=== PATIENT | female | born 1960 | race Caucasian/White ===

== ENCOUNTER 2019-01-04 23:23 | Emergency (ER) | payer BC ==
--- NOTE | 2019-01-04 23:51 | EDM.PDOC ---
ED HPI GENERAL MEDICAL PROBLEM - General Chief Complaint: Lower Extremity Injury/Pain Stated Complaint: LEFT KNEE SWOLLEN Time Seen by Provider: 01/04/19 23:33 - History of Present Illness INITIAL COMMENTS - FREE TEXT/NARRATIVE: HISTORY AND PHYSICAL: History of present illness: The patient is a 58-year-old female who underwent left knee surgery (total knee ) with at [facility] yesterday and was just discharged today and got home at 4 PM, approximately 8 hours ago and presents with concerns about swelling and discomfort at her knee. She says that she has been using her pain medication with the last dose being about 2 hours ago and she has had an ice machine icing the knee on pretty consistently until the evening when she removed it and then she noticed that the knee became very swollen and red. She is concerned that there is something going on as it feels very tight and swollen. She has not fallen but she did get up and ambulate per his instructions. She has no distal swelling or pain no proximal swelling or pain and no other systemic issues such as fever. Review of systems: As per history of present illness and below otherwise all systems reviewed and negative. Past medical history: As per history of present illness and as reviewed below otherwise noncontributory. Surgical history: As per history of present illness and as reviewed below otherwise noncontributory. Social history: No reported history of drug or alcohol abuse. Family history: As per history of present illness and as reviewed below otherwise noncontributory. Physical exam: General: Well-developed well-nourished female who is nontoxic and vital signs are noted by me HEENT: Atraumatic, normocephalic, negative for conjunctival pallor or scleral icterus, mucous membranes moist, throat clear, neck supple, nontender, trachea midline. Lungs: Clear to auscultation, breath sounds equal bilaterally, chest nontender. Heart: S1S2, regular in rhythm no overt murmurs Abdomen: Soft, nondistended, nontender. Negative for masses or hepatosplenomegaly. Negative for costovertebral tenderness. Pelvis: Stable nontender. Genitourinary: Deferred. Rectal: Deferred. Extremities: Atraumatic, negative for cords or calf pain. At the right knee there is a longitudinal incision seen which is clean and dry without any discrete erythema or drainage. There is diffuse soft tissue swelling of the knee with some erythema diffusely and some ecchymosis medially. There is no streaking and the area is not particularly tense but it is tender to palpation. There is no extension of this edema or erythema distally or proximally. There is no discrete joint effusion and there is no crepitus. Neurovascular unremarkable. Neuro: Awake, alert, oriented. Cranial nerves II through XII unremarkable. Cerebellum unremarkable. Motor and sensory unremarkable throughout. Exam nonfocal. Diagnostics: Therapeutics: The patient signed a release form for me to take pictures of her knee and send them to the orthopedics doctor on-call at [facility]. The case was discussed with Dr. Vidal, rehabilitation specialist for Dr Mane, at 0011. He does not feel that an x-ray is indicated and he thinks that the patient should make an appointment for follow-up with her surgeon in the morning if her concerns persist. He did not want me to send pictures that I had taken as he did not feel that this would change his plan or assist him. Impression: Postop evaluation, swelling, pain status post left total knee Definitive disposition and diagnosis as appropriate pending reevaluation and review of above. left knee Pain Score (Numeric/FACES): 9 - Related Data Allergies Allergy/AdvReac Type Severity Reaction Status Date / Time acetaminophen Allergy Rash Verified 01/04/19 23:42 [From Tylenol-Codeine #3] codeine phosphate Allergy Rash Verified 01/04/19 23:42 [From Tylenol-Codeine #3] Home Meds: Home Meds Albuterol [Ventolin HFA] 1 puff INH ASDIRECTED 12/21/13 [History] Ascorbic Acid [Vitamin C] 500 mg PO DAILY 01/04/19 [History] Aspirin [Aspirin EC] 325 mg PO DAILY 01/04/19 [History] Calcium Carb/Magnesium Hydrox [Rolaids Chewable Tablet] 1 tab PO ASDIRECTED 07/18 [History] Cholecalciferol (Vitamin D3) [Vitamin D3] 2,000 units PO DAILY 01/04/19 [History ] Docusate Sodium 200 mg PO BID 01/04/19 [History] Hydrocodone/Acetaminophen [[place] 10-325 Tablet] 1 tab PO Q4HR PRN 01/04/19 [ History] Meloxicam 7.5 mg PO DAILY 01/04/19 [History] Methocarbamol 750 mg PO TID PRN 01/04/19 [History] Polyethylene Glycol 3350 17 gm PO BID 01/04/19 [History] Telmisartan 40 mg PO DAILY 01/04/19 [History] Ubidecarenone [Coq-10] 100 mg PO DAILY 01/04/19 [History] amLODIPine [Norvasc] 5 mg PO DAILY 01/04/19 [History] Past Medical History Cardiovascular History: Reports: Hypertension Musculoskeletal History: Reports: Back Pain, Chronic - Past Surgical History Musculoskeletal Surgical History: Reports: Knee Replacement Social & Family History - Family History Family Medical History: Noncontributory - Tobacco Use Smoking Status *Q: Current Every Day Smoker Years of Tobacco use: 20 Packs/Tins Daily: 1 - Recreational Drug Use Recreational Drug Use: No Review of Systems - Review of Systems Review Of Systems: ROS reveals no pertinent complaints other than HPI. ED EXAM, GENERAL - Physical Exam Exam: See Below (See dictation) Course - Vital Signs Last Recorded V/S: Last Vital Signs Temp 35.7 C 01/04/19 23:30 Pulse 105 H 01/04/19 23:30 Resp 18 01/04/19 23:30 BP 112/83 01/04/19 23:30 Pulse Ox 95 01/04/19 23:30 Departure - Departure Time of Disposition: 00:26 Disposition: Home, Self-Care 01 Condition: Good Clinical Impression: Postoperative pain of left knee - Discharge Information Referrals: Hi Hurtado MD [Primary Care Provider] - Forms: ED Department Discharge Additional Instructions: The following information is given to patients seen in the emergency department who are being discharged to home. This information is to outline your options for follow-up care. We provide all patients seen in our emergency department with a follow-up referral. The need for follow-up, as well as the timing and circumstances, are variable depending upon the specifics of your emergency department visit. If you don't have a primary care physician on staff, we will provide you with a referral. We always advise you to contact your personal physician following an emergency department visit to inform them of the circumstance of the visit and for follow-up with them and/or the need for any referrals to a consulting specialist. The emergency department will also refer you to a specialist when appropriate. This referral assures that you have the opportunity for followup care with a specialist. All of these measure are taken in an effort to provide you with optimal care, which includes your followup. Under all circumstances we always encourage you to contact your private physician who remains a resource for coordinating your care. When calling for followup care, please make the office aware that this follow-up is from your recent emergency room visit. If for any reason you are refused follow-up, please contact the [facility] emergency department at and ask to speak to the emergency department charge nurse. [facility] Primary care- Internal Medicine and Family [address] [address] Continue to do all the post op instructions --- using your pain medication and activity per your discharge instructions--- and please call your orthopedic surgeon in the morning and update him on your concerns and the status of your knee. Return to ER as needed and as discussed
== END 2019-01-05 00:39 | disposition home or self-care (01) ==
LOC: MW.ED 23:23
DX: G89.18 Other acute postprocedural pain (principal); M25.562 Pain in left knee; M25.462 Effusion, left knee; I10 Essential (primary) hypertension; F17.210 Nicotine dependence, cigarettes, uncomplicated; Z88.5 Allergy status to narcotic agent; Z88.6 Allergy status to analgesic agent; Z79.899 Other long term (current) drug therapy; Z79.82 Long term (current) use of aspirin; Z96.652 Presence of left artificial knee joint
CPT/HCPCS: 99283

== ENCOUNTER 2020-02-03 22:16 | Emergency (ER) | payer BC, OTHER ==
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
== END 2020-02-03 23:45 | disposition home or self-care (01) ==
LOC: MW.ED 22:16
DX: S09.90XA Unspecified injury of head, initial encounter (principal); F10.129 Alcohol abuse with intoxication, unspecified; M25.561 Pain in right knee; G89.29 Other chronic pain; I10 Essential (primary) hypertension; Z79.82 Long term (current) use of aspirin; Z79.899 Other long term (current) drug therapy; Z88.5 Allergy status to narcotic agent; Z88.6 Allergy status to analgesic agent; W07.XXXA Fall from chair, initial encounter
CPT/HCPCS: 70450; 70450-26; 72125; 72125-26; 99284-25

== ENCOUNTER 2020-10-14 03:31 | Emergency (ER) | payer OTHER ==
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
[2020-10-14] MEDS ORDERED: Ibuprofen 800 MG Tab PO ONE (04:36)
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
== END 2020-10-14 05:43 | disposition home or self-care (01) ==
LOC: MW.ED 03:31
DX: R07.81 Pleurodynia (principal); I10 Essential (primary) hypertension; Z88.6 Allergy status to analgesic agent; Z88.5 Allergy status to narcotic agent; Z79.82 Long term (current) use of aspirin; Z79.899 Other long term (current) drug therapy; Y04.2XXA Assault by strike against or bumped into by another person, initial encounter; Y92.89 Other specified places as the place of occurrence of the external cause
CPT/HCPCS: 71101; 99284; A9270; 99283

== ENCOUNTER 2020-11-24 16:18 | Emergency (ER) | payer OTHER ==
--- NOTE | 2020-11-24 17:16 | EDM.PDOC ---
ED HPI GENERAL MEDICAL PROBLEM - General Chief Complaint: Head Injury Stated Complaint: HEAD INJURY Time Seen by Provider: 11/24/20 16:22 Source of Information: Reports: Patient History Limitations: Reports: No Limitations - History of Present Illness INITIAL COMMENTS - FREE TEXT/NARRATIVE: HISTORY AND PHYSICAL: History of present illness: The patient is a 52-year-old female who presents to the emergency room with complaints of a frontal scalp laceration that she obtained when she was bending down to feed her cat and cut her scalp on the ladder leading to her garage attic. The patient states that she does not believe that she had any loss consciousness, however, she dilated. She denies any nausea vomiting. She denies any confusion. The patient states that her did attempt to clean the area but that has been bleeding. She did not take any medication prior to arrival. Patient denies any fever, chills, headache, change in vision, syncope or near syncope. Denies any chest pain, back pain, shortness of breath or cough. Denies any abdominal pain, nausea, vomiting, diarrhea, constipation or dysuria. Has not noted any blood in urine or stool. Patient has been eating and drinking appropriately. Review of systems: As per history of present illness and below otherwise all systems reviewed and negative. Past medical history: As per history of present illness and as reviewed below otherwise noncontributory. Surgical history: As per history of present illness and as reviewed below otherwise noncontributory. Social history: See social history for further information Family history: As per history of present illness and as reviewed below otherwise noncontributory. Physical exam: General: Well developed and well nourished. Alert and orientated x 3. Nontoxic in appearance and in no acute distress. Vital signs are stable and have been reviewed by me. Nursing notes were reviewed. HEENT: Atraumatic, normocephalic, pupils equal and reactive bilaterally, negative for conjunctival pallor or scleral icterus, mucous membranes moist, TMs normal bilaterally, throat clear, neck supple, nontender, trachea midline. No drooling or trismus noted. No meningeal signs. No hot potato voice noted. Lungs: Clear to auscultation bilaterally. No wheezes, rales, or rhonchi. Chest nontender. Normal work of breathing, no accessory muscles used. Heart: S1S2, regular rate and rhythm without overt murmur, gallops, or rubs. No JVD. No peripheral edema Abdomen: Soft, nondistended, nontender. Normoactive bowel sounds. Negative for masses or costovertebral tenderness. Skin: 1 cm frontal anterior scalp laceration. Minimal bleeding. All other skin warm & dry. No lesions or rashes noted. Hematologic: No petechiae or purpra. Mucosa appropriate color and normal nail bed color and refill. Extremities: Atraumatic, moves all extremities per self without difficulty or deficits, negative for cords or calf pain. Neurovascular unremarkable. Neuro: Awake, alert, oriented. Cranial nerves II through XII unremarkable. Cerebellum unremarkable. Motor and sensory unremarkable throughout. Exam nonfocal. Psychiatric: Mood and affect are appropriate. Normal thought process. Answering questions appropriately. Notes: *This patient was seen and evaluated during the 2019 SARS-CoV-2 novel coronavirus pandemic period. Community viral transmission is ongoing at time of this encounter and the emergency department is operating under pandemic response procedures. As stated above the patient is a 52-year-old female who presents to the emergency department with complaints of a frontal scalp laceration that she obtained when she was bending down to feed her dog and cut her head on the ladder to the garage attic. The patient states that she does not feel like she lost consciousness as she did not fall to the ground but she did have a moment of being dazed. She said that she had bleeding. She denied any nausea or vomiting. She answers questions appropriately. She has no neurological deficits. Her gait is strong and steady. Upon examination and cleaning of the wounds the patient stated that she really did not want the wound to be closed and only wanted it to be treated with some skin glue. The patient states that she did not want to even come to the emergency department but her made her. I offered the patient but explained topical numbing aspect of it. The patient declined. I talked with the patient at length about the possibility of infection if the patient did not close the scalp wound. The patient stated that she did not want sutures nor did she want jet. I explained to the patient that the skin glue would not adhere due to her long hair and she did not want her hair trimmed. The patient has the capacity to understand the risks associated with not approximating the laceration. I did not think the patient needed a head CT as she was neurologically intact, answering questions appropriately, and had no LOC nor any nausea vomiting. The patient did not show any clinical signs of a concussion. The patient states that she would just tie her hair together to approximate the wound and patient did not want a head CT. I gave the patient detailed instructions on when she would need to return to the emergency department and was to look for and signs of infection. The patient verbalized her understanding of these instructions. I have talked with the patient about today's findings, in addition to providing specific details for plan of care. Reassessment at the time of disposition demonstrates that the patient is in no acute distress. The patient is stable for discharge, counseling was provided and we discussed in great detail signs and symptoms that would prompt them to return to the Emergency Department. Medication, follow up and supportive care measures were reviewed and discussed. Voices understanding and is agreeable to plan of care. Denies any further questions or concerns at this time. Impression: Scalp laceration Plan: 1. You were evaluated today on an emergent basis. Your head laceration was evaluated and found that it should be sutured or stapled together. You declined to have either done. You requested skin glue, however, this does not work in the hair as and be immediately pulled apart. You stated that you had loss of consciousness for [address] of the head. You need to keep that area clean and dry and allow it to heal. By not fixing the laceration you may have an open area which could become infected. You need to look for signs of infection that include redness, increased warmth, increased pain, or decreased healing time. Wait at least 24 hours prior to rinsing your hair out. If you have trouble please return to the emergency department. 2. You can alternate Tylenol and ibuprofen as needed for pain and fever management. 3. We encourage you to follow up with your primary care provider and/or recommended specialist in the next few days for re-evaluation and further care/management. 4. If your symptoms should worsen, new symptoms develop or any of the signs and symptoms we discussed should arise please return to the emergency room or call [phone] (if needed). Definitive disposition and diagnosis as appropriate pending reevaluation and review of above. head Pain Score (Numeric/FACES): 8 - Related Data Allergies Allergy/AdvReac Type Severity Reaction Status Date / Time acetaminophen Allergy Rash Verified 11/24/20 16:24 [From Tylenol-Codeine #3] codeine phosphate Allergy Rash Verified 11/24/20 16:24 [From Tylenol-Codeine #3] Home Meds: Home Meds Albuterol [Ventolin HFA] 1 puff INH ASDIRECTED 12/21/13 [History] Ascorbic Acid [Vitamin C] 500 mg PO DAILY 01/04/19 [History] Aspirin [Aspirin EC] 325 mg PO DAILY 01/04/19 [History] Calcium Carb/Magnesium Hydrox [Rolaids Chewable Tablet] 1 tab PO ASDIRECTED 01/04/19 [History] Cholecalciferol (Vitamin D3) [Vitamin D3] 2,000 units PO DAILY 01/04/19 [History] Docusate Sodium 200 mg PO BID 01/04/19 [History] Hydrocodone/Acetaminophen [[place] 10-325 Tablet] 1 tab PO Q4HR PRN 01/04/19 [History] Meloxicam 7.5 mg PO DAILY 01/04/19 [History] Telmisartan 40 mg PO DAILY 01/04/19 [History] Ubidecarenone [Coq-10] 100 mg PO DAILY 01/04/19 [History] amLODIPine [Norvasc] 5 mg PO DAILY 01/04/19 [History] methocarbamoL [Methocarbamol] 750 mg PO TID PRN 01/04/19 [History] polyethylene glycoL 3350 [Polyethylene Glycol 3350] 17 gm PO BID 01/04/19 [History] Past Medical History Cardiovascular History: Reports: Hypertension Musculoskeletal History: Reports: Back Pain, Chronic, Other (See Below) Other Musculoskeletal History: chronic bilat knee pain Psychiatric History: Reports: Depression, Other (See Below) Other Psychiatric History: impulse control disorder - Past Surgical History Musculoskeletal Surgical History: Reports: Knee Replacement Social & Family History - Family History Family Medical History: No Pertinent Family History - Tobacco Use Tobacco Use Status *Q: Current Every Day Tobacco User Years of Tobacco use: 35 Packs/Tins Daily: 1 - Recreational Drug Use Recreational Drug Use: No ED ROS GENERAL - Review of Systems Review Of Systems: Comprehensive ROS is negative, except as noted in HPI. ED EXAM, HEAD INJURY - Physical Exam Exam: See Below (See dictation) Course - Vital Signs Last Recorded V/S: Last Vital Signs Temp 96.8 F L 11/24/20 16:21 Pulse 76 11/24/20 17:23 Resp 18 11/24/20 16:21 BP 130/80 11/24/20 17:23 Pulse Ox 95 11/24/20 17:23 Departure - Departure Time of Disposition: 17:15 Disposition: Home, Self-Care 01 Condition: Good Clinical Impression: Scalp laceration - Discharge Information *PRESCRIPTION DRUG MONITORING PROGRAM REVIEWED*: Not Applicable *COPY OF PRESCRIPTION DRUG MONITORING REPORT IN PATIENT ELIZABETH: Not Applicable Instructions: Laceration Care, Adult Referrals: PCP,None [Primary Care Provider] - Forms: ED Department Discharge Additional Instructions: The following information is given to patients seen in the emergency department who are being discharged to home. This information is to outline your options for follow-up care. We provide all patients seen in our emergency department with a follow-up referral. The need for follow-up, as well as the timing and circumstances, are variable depending upon the specifics of your emergency department visit. If you don't have a primary care physician on staff, we will provide you with a referral. We always advise you to contact your personal physician following an emergency department visit to inform them of the circumstance of the visit and for follow-up with them and/or the need for any referrals to a consulting specialist. The emergency department will also refer you to a specialist when appropriate. This referral assures that you have the opportunity for follow-up care with a specialist. All of these measure are taken in an effort to provide you with optimal care, which includes your follow-up. Under all circumstances we always encourage you to contact your private physician who remains a resource for coordinating your care. When calling for follow-up care, please make the office aware that this follow-up is from your recent emergency room visit. If for any reason you are refused follow-up, please contact the [facility] Emergency Department at and asked to speak to the emergency department charge nurse. [facility] [address] [place] [id number] [facility] [address] [place] [address] Plan: 1. You were evaluated today on an emergent basis. Your head laceration was evaluated and found that it should be sutured or stapled together. You declined to have either done. You requested skin glue, however, this does not work in the hair as and be immediately pulled apart. You stated that you had loss of consciousness for [address] of the head. You need to keep that area clean and dry and allow it to heal. By not fixing the laceration you may have an open area which could become infected. You need to look for signs of infection that include redness, increased warmth, increased pain, or decreased healing time. Wait at least 24 hours prior to rinsing your hair out. If you have trouble please return to the emergency department. 2. You can alternate Tylenol and ibuprofen as needed for pain and fever management. 3. We encourage you to follow up with your primary care provider and/or recommended specialist in the next few days for re-evaluation and further care/management. 4. If your symptoms should worsen, new symptoms develop or any of the signs and symptoms we discussed should arise please return to the emergency room or call 911 (if needed). Sepsis Event Note (ED) - Evaluation Sepsis Screening Result: No Definite Risk
== END 2020-11-24 17:38 | disposition home or self-care (01) ==
LOC: MW.ED 16:18
DX: S01.01XA Laceration without foreign body of scalp, initial encounter (principal); I10 Essential (primary) hypertension; Z88.5 Allergy status to narcotic agent; Z88.8 Allergy status to other drugs, medicaments and biological substances; Z79.82 Long term (current) use of aspirin; Z72.0 Tobacco use; W26.8XXA Contact with other sharp object(s), not elsewhere classified, initial encounter; Y92.59 Other trade areas as the place of occurrence of the external cause
CPT/HCPCS: 99282

== ENCOUNTER 2022-08-20 06:28 | Day surgery (SDC) | payer BC, OTHER ==
[~2022-08-20 06:28] MED LIST: Lactated Ringers 1,000 ML IV SCH
[2022-08-20] MEDS ORDERED: Water For Injection, Sterile 20 ML ONE (07:31)
[2022-08-20] MEDS ORDERED: Propofol 200 MG/20 ML SDV ONE ×2 (07:31→07:57)
[2022-08-20] MEDS ORDERED: ePHEDrine 50 MG/ML SDV ONE (08:16)
== END 2022-08-20 08:45 | disposition home or self-care (01) ==
LOC: MW.SDS 06:28
PROVIDERS: ATTEND Surgery
DX: Z12.11 Encounter for screening for malignant neoplasm of colon (principal); K63.5 Polyp of colon; K57.30 Diverticulosis of large intestine without perforation or abscess without bleeding; F90.9 Attention-deficit hyperactivity disorder, unspecified type; G89.29 Other chronic pain; M54.9 Dorsalgia, unspecified; I10 Essential (primary) hypertension; E78.00 Pure hypercholesterolemia, unspecified; F41.9 Anxiety disorder, unspecified; G47.00 Insomnia, unspecified; F17.210 Nicotine dependence, cigarettes, uncomplicated; Z88.5 Allergy status to narcotic agent; Z79.899 Other long term (current) drug therapy; Z79.82 Long term (current) use of aspirin; Z98.51 Tubal ligation status
CPT/HCPCS: 45385; J2704; J7120; J3490